=== PATIENT | male | born 1950 | race Caucasian/White ===

== ENCOUNTER 2020-02-13 21:32 | Emergency (ER) | payer MEDICARE, OTHER ==
[~2020-02-13] VITALS: Ht 185 cm; Wt 98.6 kg
[2020-02-13 21:37] VITALS: BP 160/87
[2020-02-13] MEDS ORDERED: TETRACAINE 0.5% OPHTH SOLN 4 ML BTL (SINGLE DOSE ONLY) ONE (21:38)
[2020-02-13] MEDS ORDERED: FLUORESCEIN (FLUOR-I-STRIPS) 1 MG STRP ONE (21:38)
[2020-02-13] MEDS ORDERED: RX-POLY/TRIMETH (POLYTRIM) OP 10 ML BTL OP STA (22:10)
--- OUTSIDE RECORDS SUMMARY | 2020-02-13 22:12 | XMS REPORT ---
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 0 18316032 Problem Status post colonoscopy Z98.890 10 Feb, 2010 0 [id number] Problem Sleep apnea G47.30 0 [id number] Problem Back pain M54.9 27 Aug, 2008 0 6299231 05 Problem Arthropathy M12.9 0 [id number] 3 ALLERGIES No Information ENCOUNTERS Encounter Location Date Diagnosis [address] [id number] Sep, Wellness examination Z00.00 [place] [id number] [facility] [id number] [address] [place] [id number] Jun, [facility] [address] [facility] [id number] [address] [place] [id number] Feb, [place] [address] [address] [facility] [id number] [address] [place] [phone] Feb, [place] [address] [address] [facility] [id number] [address] [place] [phone] Feb, IMMUNIZATIONS No Known Immunizations SOCIAL HISTORY Never Assessed REASON FOR VISIT Lab (walk-in) PLAN OF CARE VITAL SIGNS MEDICATIONS Unknown Medications RESULTS No Results PROCEDURES Procedure Date Ordered Result Body Site Hemoglobin Test Send Out 0 dollar September 20, 2018 ASSAY OF PSA, TOTAL September 20, 2018 ASSAY THYROID STIM HORMONE September 20, 2018 COMPLETE CBC W/AUTO DIFF WBC September 20, 2018 COMPREHEN METABOLIC PANEL September 20, 2018 LIPID PANEL September 20, 2018 INSTRUCTIONS MEDICATIONS ADMINISTERED No Known Medications
--- OUTSIDE RECORDS SUMMARY | 2020-02-13 22:12 | XMS REPORT | Continuity of Care Document ---
Author Organization Unknown Address Unknown Phone Unavailable Allergies Active Description Code Type Severity Reaction Onset Reported/Identified Relationship to Patient Clinical Status Yes meperidine [id number] Drug Allerg y Unknown N/A 02/13/2020 Medications There is no data. Problems There is no data. Procedures There is no data. Results Test Result Range LIPID PANEL - 09/20/18 08:00 CHOLESTEROL, TOTAL 251 mg/dL <200 HDL CHOLESTEROL 53 mg/dL >40 TRIGLYCERIDES 141 mg/dL <150 LDL-CHOLESTEROL 170 mg/dL (calc) NRG CHOL/HDLC RATIO 4.7 (calc) <5.0 NON HDL CHOLESTEROL 198 mg/dL (calc) <13 0 CMP - 09/20/18 08:00 GLUCOSE 103 mg/dL 65-99 UREA NITROGEN (BUN) 19 mg/dL 7-25 CREATININE 1.11 mg/dL 0.70-1.25 eGFR NON-AFR. GEORGIAN 68 mL/min/1.73m2 > OR = 60 eGFR 79 mL/min/1.73m2 > OR = 60 BUN/CREATININE RATIO NOT APPLICABLE (calc) 6-22 SODIUM 138 mmol/L 135-146 POTASSIUM 4.8 mmol/L 3.5-5.3 CHLORIDE 101 mmol/L 98-110 CARBON DIOXIDE 28 mmol/L 20-32 CALCIUM 9.2 mg/dL 8.6-10.3 PROTEIN, TOTAL 6.8 g/dL 6.1-8.1 ALBUMIN 4.1 g/dL 3.6-5.1 GLOBULIN 2.7 g/dL (calc) 1.9-3.7 ALBUMIN/GLOBULIN RATIO 1.5 (calc) 1.0-2. 5 BILIRUBIN, TOTAL 1.6 mg/dL 0.2-1.2 ALKALINE PHOSPHATASE 76 U/L 40-115 AST 28 U/L 10-35 ALT 29 U/L 9-46 CBC - 09/20/18 08:00 WHITE BLOOD CELL COUNT 5.9 Thousand/uL 3 .8-10.8 RED BLOOD CELL COUNT 5.39 Million/uL 4.2 0-5.80 HEMOGLOBIN 15.9 g/dL 13.2-17.1 HEMATOCRIT 46.8 % 38.5-50.0 MCV 86.8 fL 80.0-100.0 MCH 29.5 pg 27.0-33.0 MCHC 34.0 g/dL 32.0-36.0 RDW 13.2 % 11.0-15.0 PLATELET COUNT 206 Thousand/uL 140-400 MPV 11.0 fL 7.5-12.5 ABSOLUTE NEUTROPHILS 3829 cells/uL 1500- 7800 ABSOLUTE LYMPHOCYTES 1363 cells/uL 850-3 900 ABSOLUTE MONOCYTES 460 cells/uL 200-950 ABSOLUTE EOSINOPHILS 218 cells/uL 15-500 ABSOLUTE BASOPHILS 30 cells/uL 0-200 NEUTROPHILS 64.9 % NRG LYMPHOCYTES 23.1 % NRG MONOCYTES 7.8 % NRG EOSINOPHILS 3.7 % NRG BASOPHILS 0.5 % NRG PSA - 09/20/18 08:00 PSA, TOTAL 0.7 ng/mL < OR = 4.0 TSH - 09/20/18 08:00 TSH 0.87 mIU/L 0.40-4.50 A1C - 09/20/18 08:00 HEMOGLOBIN A1c 5.2 % of total Hgb <5.7 TSH w/ FREE T4 - 03/21/19 08:18 TSH 0.39 mIU/L 0.40-4.50 T4, FREE 1.1 ng/dL 0.8-1.8 LIPID PANEL - 03/21/19 08:18 CHOLESTEROL, TOTAL 204 mg/dL <200 HDL CHOLESTEROL 47 mg/dL >40 TRIGLYCERIDES 154 mg/dL <150 LDL-CHOLESTEROL 130 mg/dL (calc) NRG CHOL/HDLC RATIO 4.3 (calc) <5.0 NON HDL CHOLESTEROL 157 mg/dL (calc) <13 0 CMP - 03/21/19 08:18 GLUCOSE 91 mg/dL 65-99 UREA NITROGEN (BUN) 17 mg/dL 7-25 CREATININE 1.15 mg/dL 0.70-1.25 eGFR NON-AFR. GEORGIAN 65 mL/min/1.73m2 > OR = 60 eGFR 75 mL/min/1.73m2 > OR = 60 BUN/CREATININE RATIO NOT APPLICABLE (calc) 6-22 SODIUM 136 mmol/L 135-146 POTASSIUM 4.7 mmol/L 3.5-5.3 CHLORIDE 104 mmol/L 98-110 CARBON DIOXIDE 26 mmol/L 20-32 CALCIUM 9.4 mg/dL 8.6-10.3 PROTEIN, TOTAL 6.7 g/dL 6.1-8.1 ALBUMIN 4.0 g/dL 3.6-5.1 GLOBULIN 2.7 g/dL (calc) 1.9-3.7 ALBUMIN/GLOBULIN RATIO 1.5 (calc) 1.0-2. 5 BILIRUBIN, TOTAL 1.6 mg/dL 0.2-1.2 ALKALINE PHOSPHATASE 77 U/L 40-115 AST 19 U/L 10-35 ALT 19 U/L 9-46 CBC w/MANUAL DIFF - 03/21/19 08:18 WHITE BLOOD CELL COUNT 6.2 Thousand/uL 3 .8-10.8 RED BLOOD CELL COUNT 5.64 Million/uL 4.2 0-5.80 HEMOGLOBIN 16.2 g/dL 13.2-17.1 HEMATOCRIT 48.9 % 38.5-50.0 MCV 86.7 fL 80.0-100.0 MCH 28.7 pg 27.0-33.0 MCHC 33.1 g/dL 32.0-36.0 RDW 13.0 % 11.0-15.0 PLATELET COUNT 219 Thousand/uL 140-400 MPV 11.1 fL 7.5-12.5 ABSOLUTE NEUTROPHILS 3608 cells/uL 1500- 7800 ABSOLUTE MONOCYTES 397 cells/uL 200-950 ABSOLUTE EOSINOPHILS 223 cells/uL 15-500 ABSOLUTE BASOPHILS 112 cells/uL 0-200 NEUTROPHILS 58.2 % NRG LYMPHOCYTES 30.0 % NRG MONOCYTES 6.4 % NRG EOSINOPHILS 3.6 % NRG BASOPHILS 1.8 % NRG ABSOLUTE LYMPHOCYTES 1860 cells/uL 850-3 900 COMMENT(S) NRG Encounters ACCT No. Visit Date/Time Discharge Status Pt. Type Provider Facility Loc./Unit Complaint [id number] 03/27/2019 13:45:00 03/27/2019 23:59: 59 CLS Outpatient [facility] [id number] 03/21/2019 08:00:00 Document Registration [id number] 09/20/2018 11:00:00 Document Registration [id number] 02/13/2020 21:33:[address] Emergency MALIHA PÉREZ, ARIADNE Rivas [facility] ER FS WOOD CHIP IN EYE
[2020-02-13] MEDS ORDERED: TETRACAINE 0.5% OPHTH SOLN 4 ML BTL (SINGLE DOSE ONLY) OP ONE (22:15)
--- NOTE | 2020-02-13 22:16 | ED EENT ---
History of Present Illness General Chief Complaint: Eye Problems Stated Complaint: WOOD CHIP IN EYE Nursing Triage Note: Pt was working with wood earlier and thinks he has a piece in his left eye. Pt tried to flush his eye at home but didn't have any relief from the irriation Source: patient History of Present Illness Date Seen by Provider: Feb 13, 2020 Time Seen by Provider: 21:40 Initial Comments 69-year-old male presenting with complaints of possible pulmonary in his left eye. He was helping build a ramp and thinks that a piece got in his eye. He had tried flushing it but still feels like there might be something under his upper eyelid. His eyes are irritated and he has been tearing a lot. He does wear glasses. He has an eye doctor he sees [place]. Allergies and Home Medications Allergies Coded Allergies: meperidine (Verified Allergy, Unknown, 02/13/20) Patient Home Medication List Home Medication List Reviewed: Yes Review of Systems Review of Systems Constitutional: No chills, No fever Eyes: See HPI Ears: No Symptoms Reported Nose: no symptoms reported Mouth: no symptoms reported Throat: no symptoms reported Respiratory: no symptoms reported Cardiovascular: no symptoms reported Gastrointestinal: no symptoms reported Musculoskeletal: no symptoms reported Skin: no symptoms reported Neurological: No Symptoms Reported Past Rcxjdit-Ecgwdo-Goqgbt Hx Past Med/Social Hx: Reviewed Nursing Past Med/Soc Hx Patient Social History Alcohol Use: Denies Use Recreational Drug Use: No Smoking Status: Never a Smoker 2nd Hand Smoke Exposure: No Recent Foreign Travel: No Contact w/Someone Who Travel: No Recent Infectious Disease Expo: No Recent Hopitalizations: No Physical Abuse: No Sexual Abuse: No Past Medical History Surgeries: Yes Orthopedic Respiratory: No Cardiac: No Neurological: No Genitourinary: No Gastrointestinal: No Musculoskeletal: No Endocrine: No HEENT: No Cancer: No Psychosocial: No Integumentary: No Blood Disorders: No Physical Exam Vital Signs Vital Signs - First Documented 02/13/20 21:37 Temp 36.3 Pulse 85 Resp 16 B/P (MAP) 160/87 (111) Pulse Ox 96 O2 Delivery Room Air Height, Weight, BMI Height: '" Weight: lbs. oz. kg; 28.00 BMI Method: General Appearance: WD/WN, no apparent distress Eyes: left eye conjunctival inflammation, left eye corneal abrasion (small area of abrasion seen with fluorescein dye); bilateral eye PERRL, bilateral eye EOMI Neurologic/Psychiatric: alert, normal mood/affect, oriented x 3 Skin: normal color, warm/dry Progress/Results/Core Measures Results/Orders My Orders Orders - ARIADNE JETT MD Tetracaine 0.5% Ophth Mariam Sdv (Tetracai (02/13/20 21:38) Fluorescein Strips ([id number]) (02/13/20 21:38) Tetracaine 0.5% Ophth Mariam Sdv (Tetracai (02/13/20 22:15) Rx-Poly/Trimeth Ophth (Rx-Polytrim Ophth (02/13/20 22:10) Medications Given in ED Current Medications Medications Dose Ordered Sig/Justin Route Start Time Stop Time Status Last Admin Dose Admin Fluorescein Sodium 1 mg STK-MED ONCE .ROUTE 02/13/20 21:38 02/13/20 21:42 DC 02/13/20 22:04 1 MG Tetracaine HCl 4 ml ONCE ONCE OP 02/13/20 22:15 02/13/20 22:16 DC 02/13/20 22:03 4 ML Vital Signs/I&O 02/13/20 21:37 Temp 36.3 Pulse 85 Resp 16 B/P (MAP) 160/87 (111) Pulse Ox 96 O2 Delivery Room Air Blood Pressure Mean: 111 Progress Progress Note : Progress Note Left eye was numbed using tetracaine. Then using a fluorescein strip and black light a small area of abrasion seen. Using with cotton swabs with the tip saturated with tetracaine the eyelid both upper and lower were swabbed and examined for foreign bodies. None were seen. Started on Polytrim eyedrops one every 6 hours 3 days. Counseled to follow-up with formal eye exam through eye doctor if continued problems or not improving. Departure Impression Primary Impression: Corneal abrasion, left Qualified Codes: S05.02XA - Injury of conjunctiva and corneal abrasion without foreign body, left eye, initial encounter Disposition: HOME, SELF-CARE Condition: Stable Departure-Patient Inst. Decision time for Depature: 22:12 Referrals: SRI AMIN OD Patient Instructions: Corneal Abrasion (DC) Add. Discharge Instructions: Use the eye drops 1 drop every 6 hours for the next 3 days. If still having problems or worsening problems then check with your eye doctor or Dr. Amin All discharge instructions reviewed with patient and/or family. Voiced understanding. Images Eye 1 - Abrasion, Dye uptake (fluorescein) ARIADNE JETT MD Feb 13, 2020 22:15
== END 2020-02-13 22:19 | disposition home or self-care (01) ==
LOC: EDUNIT# 21:32 → ER FS 21:33
DX: S05.02XA Injury of conjunctiva and corneal abrasion without foreign body, left eye, initial encounter (principal); Z88.6 Allergy status to analgesic agent; X58.XXXA Exposure to other specified factors, initial encounter
CPT/HCPCS: 99283